=== PATIENT | female | born 1995 | race American Indian/Alaskan Native ===

== ENCOUNTER 2016-03-22 23:47 | Emergency (ER) | payer SELFPAY ==
[2016-03-23 00:17] VITALS: BP 128/84
[2016-03-23] MEDS ORDERED: ROBITUSSIN AC PO ONE (03:31)
[2016-03-23] MEDS ORDERED: NAPROSYN PO ONE (03:31)
[2016-03-23] MEDS ORDERED: DUONEB 0.5 MG-3 MG/3 ML SOLN IH ONE (03:31)
--- NOTE | 2016-03-23 04:09 | Emergency Department Report ---
- General Chief Complaint: Upper Respiratory Infection Stated Complaint: FEVER/CHEST COLD Time Seen by Provider: 03/23/16 03:11 Source: patient Mode of arrival: Ambulatory Limitations: No Limitations - History of Present Illness Initial Comments: 20-year-old female no significant past medical history presents with 2 weeks of dry cough, body aches, decreased appetite. Patient states she has been taking [id number] cough medicines with mild relief of her cough, states that body aches have been becoming worse. Denies nausea vomiting or diarrhea. Denies any recent travel denies any recent sick contacts. Denies smoking drinking or drug use. States she has been having fits of coughing which are keeping her up at night MD Complaint: cough Onset/Timin -: week(s) Severity: moderate Severity scale (0 -10): 6 Associated Symptoms: cough - Related Data Previous Rx's Medication Instructions Recorded Last Taken Type ALBUTEROL Inhaler [Proair] 1 puff IH Q4H PRN #1 inha 03/23/16 Unknown Rx Azithromycin [Zithromax Z-TORIN] 250 mg PO QDAY #6 tablet 03/23/16 Unknown Rx Brompheniramine/Pseudoephed/Dm 10 ml PO Q4H PRN #1 bottle 03/23/16 Unknown Rx [Bromfed Dm Cough Syrup] Naproxen [Naprosyn TAB] 500 mg PO BID PRN #14 tablet 03/23/16 Unknown Rx Allergies Allergy/AdvReac Type Severity Reaction Status Date / Time No Known Allergies Allergy Verified 03/23/16 00:14 ED Review of Systems ROS: Stated complaint: FEVER/CHEST COLD Other details as noted in HPI Constitutional: denies: chills, fever Eyes: denies: eye pain, eye discharge, vision change ENT: denies: ear pain, throat pain Respiratory: cough. denies: shortness of breath, wheezing Cardiovascular: denies: chest pain, palpitations Endocrine: no symptoms reported Gastrointestinal: denies: abdominal pain, nausea, diarrhea Genitourinary: denies: urgency, dysuria, discharge Musculoskeletal: denies: back pain, joint swelling, arthralgia Skin: denies: rash, lesions Neurological: denies: headache, weakness, paresthesias Psychiatric: denies: anxiety, depression Hematological/Lymphatic: denies: easy bleeding, easy bruising ED Past Medical Hx - Past Medical History Previous Medical History?: No - Surgical History Past Surgical History?: No - Social History Smoking Status: Never Smoker Substance Use Type: None - Medications Home Medications: Home Medications Medication Instructions Recorded Confirmed Last Taken Type ALBUTEROL Inhaler [Proair] 1 puff IH Q4H PRN #1 inha 03/23/16 Unknown Rx Azithromycin [Zithromax Z-TORIN] 250 mg PO QDAY #6 tablet 03/23/16 Unknown Rx Brompheniramine/Pseudoephed/Dm 10 ml PO Q4H PRN #1 bottle 03/23/16 Unknown Rx [Bromfed Dm Cough Syrup] Naproxen [Naprosyn TAB] 500 mg PO BID PRN #14 tablet 03/23/16 Unknown Rx ED Physical Exam - General Limitations: No Limitations General appearance: alert, in no apparent distress - Head Head exam: Present: atraumatic, normocephalic - Eye Eye exam: Present: normal appearance - ENT ENT exam: Present: mucous membranes moist - Neck Neck exam: Present: normal inspection - Respiratory Respiratory exam: Present: normal lung sounds bilaterally. Absent: respiratory distress - Cardiovascular Cardiovascular Exam: Present: regular rate, normal rhythm. Absent: systolic murmur, diastolic murmur, rubs, gallop - GI/Abdominal GI/Abdominal exam: Present: soft, normal bowel sounds - Extremities Exam Extremities exam: Present: normal inspection - Back Exam Back exam: Present: normal inspection - Neurological Exam Neurological exam: Present: alert, oriented X3 - Psychiatric Psychiatric exam: Present: normal affect, normal mood - Skin Skin exam: Present: warm, dry, intact, normal color. Absent: rash ED Course Vital Signs 03/23/16 00:14 Temperature 99.3 F Pulse Rate 87 Respiratory 16 Rate Blood Pressure 128/84 O2 Sat by Pulse 100 Oximetry ED Medical Decision Making - Medical Decision Making A/P: Acute bronchitis 1-naproxen when necessary, Proair inhaler when necessary, Z-Torin, Bromfed 2-follow-up with primary medical doctor Critical care attestation.: If time is entered above; I have spent that time in minutes in the direct care of this critically ill patient, excluding procedure time. ED Disposition Clinical Impression: Acute bronchitis Qualifiers: Bronchitis organism: unspecified organism Qualified Code(s): J20.9 - Acute bronchitis, unspecified Disposition: DISCHARGED TO HOME OR SELFCARE Is pt being admited?: No Does the pt Need Aspirin: No Condition: Stable Instructions: Acute Bronchitis (ED) Prescriptions: Brompheniramine/Pseudoephed/Dm [Bromfed Dm Cough Syrup] 10 ml PO Q4H PRN #1 bottle PRN Reason: Cough Naproxen [Naprosyn TAB] 500 mg PO BID PRN #14 tablet PRN Reason: Pain ALBUTEROL Inhaler [Proair] 1 puff IH Q4H PRN #1 inha PRN Reason: Wheezing Azithromycin [Zithromax Z-TORIN] 250 mg PO QDAY #6 tablet Referrals: PRIMARY CARE, [Primary Care Provider] - 3-5 Days [facility] [Outside] - 3-5 Days Forms: Work/School Release Form(ED) Time of Disposition: 04:06
== END 2016-03-23 04:10 | disposition home or self-care (01) ==
LOC: ED 23:47
DX: J20.9 Acute bronchitis, unspecified (principal)
CPT/HCPCS: 94640

== ENCOUNTER 2018-01-08 00:47 | Emergency (ER) | payer SELFPAY ==
[2018-01-08 00:57] VITALS: BP 129/79
--- NOTE | 2018-01-08 02:03 | Emergency Department Report ---
Abscess Boil HPI - HPI Chief Complaint: Skin/Abscess/Foreign Body Stated Complaint: KNOT W/PUS UNDER LEFT ARM Time Seen by Provider: 01/08/18 01:27 Duration: 3 Days Location: Lower Extremity Severity: Mild History: Yes Pain, Yes Purulent Drainage, No Fever, No Numbness, No Foreign Body , No Previous History, No Insect Bite HPI: This is a 22-year-old female nontoxic, well nourished in appearance, no acute signs of distress presents to the ED with c/o of left axilla abscess with drainage x3 days. Patient stated that the abscess has been started to drain today. Patient denies any fever, chills, nausea, vomiting, chest pain, short of breath, headache or stiff neck. Patient denies any allergies or significant past medical history. Home Medications: Previous Rx's Medication Instructions Recorded Last Taken Type ALBUTEROL Inhaler (OR & NICU) 1 puff IH Q4H PRN #1 inha 03/23/16 Unknown Rx [Proair] Azithromycin [Zithromax Z-TORIN] 250 mg PO QDAY #6 tablet 03/23/16 Unknown Rx Brompheniramine/Pseudoephed/Dm 10 ml PO Q4H PRN #1 bottle 03/23/16 Unknown Rx [Bromfed Dm Cough Syrup] Naproxen [Naprosyn TAB] 500 mg PO BID PRN #14 tablet 03/23/16 Unknown Rx Acetaminophen/Codeine [Tylenol 1 tab PO Q6H PRN #12 tab 01/08/18 Unknown Rx /Codeine # 3 tab] Ibuprofen [Motrin] 600 mg PO Q8H PRN #20 tablet 01/08/18 Unknown Rx Sulfamethoxazole/Trimethoprim 1 each PO BID #14 tablet 01/08/18 Unknown Rx [Bactrim DS TAB] Allergies/Adverse Reactions: Allergies Allergy/AdvReac Type Severity Reaction Status Date / Time No Known Allergies Allergy Verified 03/23/16 00:14 ED Review of Systems ROS: Stated complaint: KNOT W/PUS UNDER LEFT ARM Other details as noted in HPI Constitutional: denies: chills, fever Eyes: denies: eye pain, eye discharge, vision change ENT: denies: ear pain, throat pain Respiratory: denies: cough, shortness of breath, wheezing Cardiovascular: denies: chest pain, palpitations Endocrine: no symptoms reported Gastrointestinal: denies: abdominal pain, nausea, diarrhea Genitourinary: denies: urgency, dysuria, discharge Musculoskeletal: denies: back pain, joint swelling, arthralgia Skin: denies: rash, lesions Neurological: denies: headache, weakness, paresthesias Psychiatric: denies: anxiety, depression Hematological/Lymphatic: denies: easy bleeding, easy bruising ED Past Medical Hx - Past Medical History Previous Medical History?: No - Surgical History Past Surgical History?: No - Social History Smoking Status: Never Smoker Substance Use Type: None - Medications Home Medications: Home Medications Medication Instructions Recorded Confirmed Last Taken Type ALBUTEROL Inhaler (OR & NICU) 1 puff IH Q4H PRN #1 inha 03/23/16 Unknown Rx [Proair] Azithromycin [Zithromax Z-TORIN] 250 mg PO QDAY #6 tablet 03/23/16 Unknown Rx Brompheniramine/Pseudoephed/Dm 10 ml PO Q4H PRN #1 bottle 03/23/16 Unknown Rx [Bromfed Dm Cough Syrup] Naproxen [Naprosyn TAB] 500 mg PO BID PRN #14 tablet 03/23/16 Unknown Rx Acetaminophen/Codeine [Tylenol 1 tab PO Q6H PRN #12 tab 01/08/18 Unknown Rx /Codeine # 3 tab] Ibuprofen [Motrin] 600 mg PO Q8H PRN #20 tablet 01/08/18 Unknown Rx Sulfamethoxazole/Trimethoprim 1 each PO BID #14 tablet 01/08/18 Unknown Rx [Bactrim DS TAB] ED Abscess Boil Physical Exam - Exam General: Vital signs noted. No distress. Alert and acting appropriately. GENERAL: The patient is a well-developed, well-nourished in no apparent distress. Patient is alert and acting appropriately for age. Alert and oriented 3, no apparent distress, normal gait, atraumatic. HEENT: Head is normocephalic and atraumatic. PERRL, Extraocular muscles are intact. Pupils are equal, round, and reactive to light and accommodation. Nares appeared normal. Mouth is well hydrated and without lesions. Mucous membranes are moist. Posterior pharynx clear of any exudate or lesions. Mouth is well hydrated and without lesions. Tonsils not erythematous or swollen. Uvula midline. Tongue elevated. Mucous members are moist. Posterior pharynx clear, no exudate or lesions. Patent airways. NECK: Supple. No carotid bruits. No lymphadenopathy or thyromegaly.nontender. No meningitic signs are noted. LUNGS: Clear to auscultation. Non labor breathing. No intercostal retractions. Symmetrical with respiration, no wheezing, no rales, or crackles. HEART: Regular rate and rhythm without murmur, rubs or gallops. No reproducible. S1, S2 present, regular rate and rhythm without murmur, no rubs, no gallops. ABDOMEN: Soft, nontender, and nondistended. Positive bowel sounds. No hepatosplenomegaly was noted. No guarding or rebound tenderness, negative epigastric bruit. Negative psoas sign, negative kapoor sign, negative McBurneys sign EXTREMITIES: Without any cyanosis, clubbing, rash, lesions or edema. Peripheral pulses intact. Capillary refill less than 2 seconds. Full range of motion bilaterally. NEUROLOGIC: Cranial nerves II through XII are grossly intact. Alert and oriented x 3. Normal gait. Symmetrical strength and sensation. Reflexes 2+ throughout. Cerebellar testing normal. GCS score of 15. PSYCHIATRIC: Normal affect with no suicidal or homicidal ideations. Skin: 0.5 cm induration or fluctuance with purulent drainage. Tender to touch. No surrounding cellulitis. Exam: Yes Tenderness, Yes Fluctuance, Yes Normal Neurologic Exam, Yes Normal Circulation, No Surrounding Cellulites/Erythema, No Lymphangitis, No Crepitation , No Heart Murmur ED Course Vital Signs 01/08/18 00:52 Temperature 99 F Pulse Rate 106 H Respiratory 18 Rate Blood Pressure 129/79 O2 Sat by Pulse 98 Oximetry - Reevaluation(s) Reevaluation #1: 01/08/18 02:01 Patient is speaking in full sentences with no signs of distress noted. Critical care attestation.: If time is entered above; I have spent that time in minutes in the direct care of this critically ill patient, excluding procedure time. ED Medical Decision Making - Medical Decision Making This is a 22-year-old female that presents with a abscess. Culture is stable and was examined by me. The abscess currently draining. I will discharge patient with Bactrim and Tylenol with codeine for pain. She was instructed to observe symptoms of increasing swelling as this indicates for a incision and drainage performed and return to the ER soon as possible.. Patient was referred to Follow-up with a primary care doctor in 3-5 days or if symptoms worsen and continue return to emergency room as soon as possible. At time of discharge, the patient does not seem toxic or ill in appearance. No acute signs of distress noted. Patient agrees to discharge treatment plan of care. No further questions noted by the patient. ED Disposition Clinical Impression: Abscess Disposition: DC-01 TO HOME OR SELFCARE Is pt being admited?: No Does the pt Need Aspirin: No Condition: Stable Instructions: Abscess (ED), Acetaminophen/Codeine (By mouth) Additional Instructions: Follow-up with a primary care doctor in 3-5 days or if symptoms worsen and continue return to emergency room as soon as possible. Do not operate any machinery while taking Tylenol with codeine as this may cause drowsiness. Prescriptions: Acetaminophen/Codeine [Tylenol /Codeine # 3 tab] 1 tab PO Q6H PRN #12 tab PRN Reason: Pain , Severe (7-10) Ibuprofen [Motrin] 600 mg PO Q8H PRN #20 tablet PRN Reason: Pain Sulfamethoxazole/Trimethoprim [Bactrim DS TAB] 1 each PO BID #14 tablet Referrals: PRIMARY CAREMD [Primary Care Provider] - 3-5 Days BREONNA GIPSON MD [Staff Physician] - 3-5 Days [facility] [Outside] - 3-5 Days [facility] [Outside] - 3-5 Days Forms: Work/School Release Form(ED)
== END 2018-01-08 02:23 | disposition home or self-care (01) ==
LOC: ED 00:47
DX: L02.412 Cutaneous abscess of left axilla (principal)
CPT/HCPCS: 99282